=== PATIENT | male | born 1995 | race Caucasian/White ===

== ENCOUNTER 2017-03-26 08:24 | Emergency (ER) | payer OTHER ==
[~2017-03-26] VITALS: Ht 188 cm; Wt 56.7 kg
[2017-03-26 08:24] VITALS: BP_SYST 120
[2017-03-26] MEDS ORDERED: IPRATROPIUM/ALBUTEROL SULFATE 3 ML AMPUL.NEB INH ONE (09:15)
[2017-03-26 09:55] VITALS: BP_SYST 129
== END 2017-03-26 09:55 | disposition home or self-care (01) ==
LOC: SED 08:24
DX: J45.901 Unspecified asthma with (acute) exacerbation (principal)
CPT/HCPCS: 71020-TC; 94640; 99284